=== PATIENT | female | born 1995 | race African-American/Black ===

== ENCOUNTER 2017-08-05 21:46 | Emergency (ER) | payer MEDICAID, OTHER ==
[~2017-08-05] VITALS: Ht 162.6 cm; Wt 73.9 kg
[2017-08-05 22:04] VITALS: BP 137/88
== END 2017-08-05 22:49 | disposition home or self-care (01) ==
LOC: ER 21:49
DX: R07.89 Other chest pain (principal); M79.1 Myalgia
CPT/HCPCS: 71045-TC; A4606; Z7610